=== PATIENT | male | born 1975 | race Caucasian/White ===

== ENCOUNTER 2016-07-26 13:28 | Emergency (ER) | payer OTHER ==
--- NOTE | 2016-07-26 14:39 | EDPHY ---
H & P Time Seen by Provider: 07/26/16 14:32 HPI/ROS: CHIEF COMPLAINT: Pain in penis. 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 He describes this as a burning sensation in his urethra. When he is not urinating he has discomfort in his lower abdomen with the sensation of urinary urgency. He admits associated bloating and decreased urinary output. He has no history of UTI or pyelonephritis. He denies fever, flank pain, penile discharge, or other complaints. He does admit to having pneumonia 10 days ago and completed his course of Levaquin 5 days ago. He is due to have another kidney transplant at some point later this year. No fever. REVIEW OF SYSTEMS: A complete 10-point review of systems was performed and is negative except for those items mentioned in the HPI. Past Medical/Surgical History: Kidney and pancreas transplant. Dialysis patient. Social History: Nonsmoker. Smoking Status: Never smoked Physical Exam: General Appearance: Alert, nontoxic, pleasant Eyes: Pupils equal and round, no conjunctival pallor or injection ENT, Mouth: Mucous membranes moist Neck: Normal inspection Respiratory: Lungs are clear to auscultation Cardiovascular: Regular rate and rhythm Gastrointestinal: Abdomen is soft, infraumbilical swelling Neurological: A&O, nonfocal exam Skin: Warm and dry, no rash Extremities: Nontender, no pedal edema Psychiatric: Mood and affect normal Constitutional: Initial Vital Signs Temperature (C) 36.6 C 07/26/16 13:30 Heart Rate 77 07/26/16 13:30 Respiratory Rate 16 07/26/16 13:30 Blood Pressure 168/100 H 07/26/16 13:30 O2 Sat (%) 94 07/26/16 13:30 O2 Delivery Mode Room Air Allergies/Adverse Reactions: Penicillins Allergy (Severe, Verified 07/28/16 13:13) Home Medications: Medication Instructions Recorded Insulin Glargine [Lantus Insulin 0 unit SQ 11/06/10 Vial] Insulin Lispro [HUMALOG] 11/06/10 [place] POTASSIUM [Cozaar] DAILY 11/06/10 Amlodipine Besylate [Amlodipine 10 mg PO 03/03/11 Besilate] Furosemide [Lasix] 0 mg PO 03/03/11 Ciprofloxacin [Cipro] 500 mg PO DAILY #4 tab 07/26/16 Hydrocodone/APAP 5/325 [[place] 1 tab PO Q6 PRN #10 tab 07/26/16 5/325] HYDROcodone/APAP 10/325 [[place] 1 - 2 each PO Q4-6PRN PRN #30 tab 07/28/16 10/325] Medical Decision Making ED Course/Re-evaluation: Thisi pt presents with likely urinary retention +/- UTI. UA and bladder scan ordered. 1554: Bladder scan showed greater than 1L of urine in the patient's bladder. [place] Catheter will be placed. I discussed this with him and answered all of his questions. He is comfortable with the plan. 1638: More comfortable after camargo placement, 1 liter output. UA negative. Given immunocompromise, I will place him on abx prophylaxis while camargo is in place. I spoke with pharmacist Jason about renal Ciprofloxacin dosing. He recommends 500mg once per day, to be given after dialysis. 1700: Patient's urine showed 2+ glucose. h/o prior diabetes, but hyperglycemia has resolved, and he is no longer on diabetic meds. An ISTAT was obtained that showed glucose 67. Differential Diagnosis: includes though not limited to UTI, acute prostatitis, pyelo, urethritis. - Data Points Medications Given: Discontinued Medications Acetaminophen/Hydrocodone Bitart ([place] 5/325) 1 tab PO EDNOW ONE Stop: 07/26/16 16:54 Last Admin: 07/26/16 17:06 Dose: 1 tab Ciprofloxacin (Cipro) 500 mg PO EDNOW ONE PRN Reason: Protocol Stop: 07/26/16 16:36 Last Admin: 07/26/16 16:53 Dose: 500 mg Departure - Departure Disposition: Home, Routine, Self-Care Clinical Impression: Urinary retention Condition: Good Instructions: Urinary Retention in Men (ED), [place] Catheter Placement and Care (ED) Additional Instructions: Call Dr. Sorenson, urology, tomorrow to set up a follow up appointment. Return to the emergency department for any serious worsening of condition. Referrals: Natalio Sorenson MD [Medical Doctor] - As per Instructions Prescriptions: Ciprofloxacin [Cipro] 500 mg PO DAILY #4 tab Hydrocodone/APAP 5/325 [[place] 5/325] 1 tab PO Q6 PRN #10 tab PRN Reason: Pain, Moderate Report Scribed for: Ximena S [place] Report Scribed by: Denton Noble Date of Report: 07/26/16 Time of Report: 14:48 Physician Review and Approval Statement: 07/26/16 14:48 Portions of this note were transcribed by a biomedical technician. I personally performed a history, physical exam, medical decision making, and confirmed accuracy of information the transcribed note.
[2016-07-26 15:37] LABS: COLOR YELLOW; LEUKOCYTE ESTERASE,URINE NEGATIVE (NEGATIVE); NITRITE,URINE NEGATIVE (NEGATIVE)
[2016-07-26] MEDS ORDERED: CIPROFLOXACIN 500 MG TAB PO ONE (16:35)
[2016-07-26] MEDS ORDERED: HYDROCODONE/APAP 5/325 TAB PO ONE (16:53)
[2016-07-26 17:08] VITALS: BP 145/95; PULSE 95; RESP 18; TEMP 98.2; O2SAT 98
== END 2016-07-26 17:08 | disposition home or self-care (01) ==
PROC: 0T9B70Z Drainage of Bladder with Drainage Device, Via Natural or Artificial Opening (ICD-10-PCS; principal; 2016-07-26)
DX: R33.9 Retention of urine, unspecified (principal); Z79.4 Long term (current) use of insulin; Z99.2 Dependence on renal dialysis
CPT/HCPCS: 82947-QW

== ENCOUNTER 2016-07-28 13:07 | Emergency (ER) | payer OTHER ==
[2016-07-28 13:12] VITALS: BP 140/86; PULSE 72; RESP 16; TEMP 97.2; O2SAT 97
--- NOTE | 2016-07-28 13:20 | EDPHY ---
H & P Stated Complaint: WANTS URINARY CATHETER OUT - Personal History Current Tetanus Diphtheria and Acellular Pertussis (TDAP): Yes Tetanus Vaccine Date: < 10 YEARS - Medical/Surgical History Hx Asthma: No Hx Chronic Respiratory Disease: No Hx Diabetes: No Hx Cardiac Disease: No Hx Renal Disease: Yes Hx Cirrhosis: No Hx Alcoholism: No Hx HIV/AIDS: No Hx Splenectomy or Spleen Trauma: No Other PMH: M/W/F dialysis, kidney & pancreas transplant 5 years ago - Social History Smoking Status: Never smoked Constitutional: Initial Vital Signs Temperature (C) 36.2 C 07/28/16 13:10 Heart Rate 72 07/28/16 13:10 Respiratory Rate 16 07/28/16 13:10 Blood Pressure 140/86 H 07/28/16 13:10 O2 Sat (%) 97 07/28/16 13:10 O2 Delivery Mode Room Air Allergies/Adverse Reactions: Penicillins Allergy (Severe, Verified 07/28/16 13:13) Home Medications: Medication Instructions Recorded Insulin Glargine [Lantus Insulin 0 unit SQ 11/06/10 Vial] Insulin Lispro [HUMALOG] 11/06/10 [place] POTASSIUM [Cozaar] DAILY 11/06/10 Amlodipine Besylate [Amlodipine 10 mg PO 03/03/11 Besilate] Furosemide [Lasix] 0 mg PO 03/03/11 Ciprofloxacin [Cipro] 500 mg PO DAILY #4 tab 07/26/16 Hydrocodone/APAP 5/325 [[place] 1 tab PO Q6 PRN #10 tab 07/26/16 5/325] Medical Decision Making ED Course/Re-evaluation: CHIEF COMPLAINT: Pain from [place] Catheter. HISTORY OF PRESENT ILLNESS: The patient is a 41-year-old male who had a [place] catheter placed 2 days ago presenting for urethral pain that began after catheter placement. The catheter has been draining well. He is a dialysis patient and was having difficulty passing the small amount of urine he needed to pass each day. He denies other complaints at this time. REVIEW OF SYSTEMS: A 10 point review of systems was performed and is negative with the exception of the elements mentioned in the history of present illness. PHYSICAL EXAM: HR, BP, O2 Sat, RR. Temp noted General Appearance: Alert, well hydrated, appropriate, and non-toxic appearing. Head: Atraumatic without scalp tenderness or obvious injury Eyes: Pupils equal, round, reactive to light and accommodation, EOMI, no trauma , no injection. Ears: Clear bilaterally, no perforation, normal landmarks Nose: Atraumatic, no rhinorrhea, clear. Throat: There is no erythema or exudates, no lesions, normal tonsils, mucus membranes moist. Neck: Supple, 2+ carotid upstroke, nontender, no lymphadenopathy. Respiratory: No retractions, no distress, no wheezes, and no accessory muscle use. Lungs are clear to auscultation bilaterally. Cardiovascular: Regular rate and rhythm, no murmurs, rubs, or gallops. Bilateral carotid, radial, dorsalis pedis, and posterior tibial pulses intact. Good capillary refill all extremities. Gastrointestinal: Abdomen is soft, nontender, non-distended, no masses, no rebound, no guarding, no peritoneal signs. Musculoskeletal: Normal active ROM of all extremities, atraumatic. Neurological: Alert, appropriate, and interactive. The patient has normal DTRs and non-focal cranial nerves, motor, sensory, and cerebellar exam. Skin: No rashes, good turgor, no nodules on palpation. Past medical history:Diabetes Type 1 Past surgical history:Kidney and pancreas transplant. Social history: Here alone. MEDICAL DECISION MAKING: This is a 41-year-old male who had a [place] Catheter placed 2 days ago for urinary difficulty. He is now complaining of penile discomfort from the catheter. The Catheter was draining well and he did notice a small amount of blood in his bag which is most likely from urethral discomfort. He will have the [place] Catheter removed and will be discharged. If he has continued problems with it he will return for catheter replacement. Departure - Departure Disposition: Home, Routine, Self-Care Clinical Impression: Encounter for [place] catheter removal Condition: Good Instructions: Urinary Retention in Men (ED) Additional Instructions: Follow up with your urologist if you have continued problems. Return to the emergency department if you experience difficulty urinating or any other serious worsening of condition. Referrals: Natalio Sorenson MD [Medical Doctor] - As per Instructions Report Scribed for: [place] Report Scribed by: Denton Noble Date of Report: 07/28/16 Time of Report: 13:24
== END 2016-07-28 13:33 | disposition home or self-care (01) ==
DX: Z46.6 Encounter for fitting and adjustment of urinary device (principal); E10.9 Type 1 diabetes mellitus without complications